=== PATIENT | female | born 1980 | race Two or more races ===

== ENCOUNTER → 2024-06-16 | Day surgery (SDC) | payer MEDICAID ==
[2024-06-12 15:33] LABS: Basophils # (auto) 0.1 10 ^3/uL (0-0.2); Eosinophils # (auto) 0.1 10 ^3/uL (0-0.8); Eosinophils % (auto) 1.5 % (0.0-7.0); Hematocrit 39.6 % (36.0-46.0); Hemoglobin 13.3 g/dL (12.2-16.2); Lymphocytes # (auto) 1.6 10 ^3/uL (0.4-5.4); Lymphocytes % (auto) 27.9 % (10.0-50.0); Mean Corpuscular Hemoglobin 24.9 pg (28.0-32.0); Mean Corpuscular Hgb Conc. 33.5 g/dL (32.0-36.0); Mean Corpuscular Volume 74.3 fL (80.0-100.0); Monocytes # (auto) 0.5 10 ^3/uL (0-1.3); Neutrophils # (auto) 3.5 10 ^3/uL (1.6-8.6); Neutrophils % (auto) 60.6 % (37.0-80.0); Nucleated Red Blood Cells % 0.6 %; Platelet Count (auto) 216 10^3/uL (140-450); Red Blood Cells 5.33 10^6/uL (4.0-5.20); Red Cell Distribution Width 15.4 % (11.8-14.3); White Blood Cell 5.7 10^3/uL (4.4-10.8)
[2024-06-12 15:54] LABS: INR 0.97 (0.9-1.15); Partial Thromboplastin Time 23.8 SEC (24.5-34.5); Prothrombin Time 10.3 sec (9.3-11.8)
[2024-06-12 15:59] LABS: Urine Bacteria FEW /hpf (None Seen); Urine Blood 2+ /uL (Negative); Urine Budding Yeast OCCASIONAL /hpf (None Seen); Urine Clarity Turbid (Clear); Urine Color Yellow (Yellow); Urine Mucus FEW (None Seen); Urine Protein, UAD Negative (Negative); Urine Specific Gravity 1.025 (1.001-1.035); Urine Squamous Epithelial Cell MANY /hpf (<5); Urine Urobilinogen Normal (Negative); Urine WBC 17 /HPF (0-5); Urine pH 5.5 (5.0-9.0)
[2024-06-12 16:25] LABS: Alanine Aminotransferase 28 U/L (7-40); Alkaline Phosphatase 56 U/L (46-116); Anion Gap 9 (5-15); BUN/Creatinine Ratio 23.2 (10.0-20.0); Blood Urea Nitrogen 16 mg/dL (9-23); Calcium 10.3 mg/dL (8.7-10.4); Carbon Dioxide 26 mmol/L (20-31); Chloride 107 mmol/L (98-107); Glucose 77 mg/dL (74-106); Sodium 142 mmol/L (136-145)
[2024-06-12 16:26] LABS: Potassium 3.3 mmol/L (3.5-5.1); Total Protein 6.8 g/dL (5.7-8.2)
[2024-06-12 16:27] LABS: Albumin 4.4 g/dL (3.2-4.8); Aspartate Aminotransferase 22 U/L (13-40)
[2024-06-12 16:28] LABS: Bilirubin, Total 0.4 mg/dL (0.2-1.0)
[~2024-06-16] VITALS: Ht 170.2 cm; Wt 66.2 kg
[~2024-06-16] MED LIST: DOXY-286 PO; DexAMETHasone SOD PHOS 10MG/1ML VIAL INJ ONE; GLYCOPYRROLATE 0.2 MG/ML 1ML VIAL ONE; HYDROmorphone HCL 2 MG/ML VL/or syr IV PRN; KETOROLAC TROMETH 30 MG/ML 1ML VIAL ONE; LIDOCAINE 1% INJ PF 5ML AMP ONE; METR-344 PO; MIDAZOLAM HCL 2MG/2ML 2ml VIAL (1mg/ml) ONE; OMEP-434 PO; ONDANSETRON HCL 4 MG/2 ML VIAL ONE; PROPOFOL 10 MG/ML 20 ML IV ONE; fentaNYL CITRATE 100 MCG/2 ML VL ONE
--- NOTE | 2024-06-16 13:21 | DVHHP2 ---
History Allergies: Coded Allergies: NO KNOWN ALLERGIES (Unverified , 06/12/24) Chief Complaint: Left ankle sprain Present Illness(Onset/Duration James Pfeiffer [id number] 1980 04/24/2024 02:30 PM Page: 02/12 Patient is a 44 year old female that presents to clinic for evaluation of right and left foot pain. Pain is described as sharp, and is 7/10, and located at the right & left big toe joint. The problem is aggravated by activity, cool climate and is alleviated by rest. Has no pain with upward and downward movement of foot. Treatment has not been attempted to this point. Patient denies any trauma to the area. Patient denies any other pedal complaints at this time. Physical Exam Other MUSCULOSKELETAL EXAM: - Moderate bunion present to the right&left foot. - The bunion is tracking?. - Tenderness is present over the eminence and within the 1st MTPJ. - The first ray is? hypermobile on exam. - Muscle strength is 5/5 and active motion is pain-free and symmetrical bilaterally with plantarflexion, dorsiflexion, abduction, adduction, inversion, and eversion against resistance. - No pain or crepitus with passive range of motion bilaterally to all major pedal joints.? X-rays reviewed with the patient OBJECTIVE: The patient is a pleasant female sitting in no acute distress. Respirations regular and non-labored. He has no focal neurologic deficits. DERMATOLOGIC EXAM: - Skin is warm, smooth, and supple bilaterally. - No erythema noted to the foot and ankle bilaterally. - No hyperkeratotic lesions noted bilaterally. - No other discolorations, lesions, or open wounds noted bilaterally. VASCULAR EXAM: - DP and PT pulses are palpable bilaterally. - [employer] LPN is brisk to all digits. - No edema noted to the leg, foot, and ankle bilaterally. NEUROLOGIC EXAM: - Normal light touch sensation to the superficial peroneal, deep peroneal, sural, saphenous, and tibial nerve branches. - Protective sensation is intact as tested with a 5.07 10g [place]av Monofilament bilaterally. - No paresthesia noted on percussion of Tibial Nerve in the Tarsal Tunnel bilaterally. Plan PREOP PLAN The patient is scheduled for bilateral foot exostectomy on 06/16/24. We reviewed the surgical procedure, the expected recovery and the patient's needs post- operatively. The patient was also given written and verbal pre-operative and post-operative instructions. The benefits of surgery were reviewed which include reduction in pain and increased function. The risks of surgery were reviewed with the patient and include but are not limited to infection, pain, bleeding, numbness, scarring, delayed wound healing, loss of soft tissue or bone, non- union, malunion or delayed-union of bone, joint stiffness, painful hardware, failure of hardware, and potential need for additional surgery. Loss of limb or life. Risks associated with anesthesia. All of the patient's questions were answered to their satisfaction. Informed consent was obtained, signed, and is in the patient's chart. No guarantees were given or implied. I anticipate maintaining the patient non-weight bearing? in a fracture boot? post- operatively. A prescription for post-operative pain medication will be dispensed for Oxycodone 5mg? and Zofran 4mg. Please note that the database on DOP was accessed and the patient was assessed for prior prescriptions. In prescribing opioid therapy for the management of pain, I have reviewed with the patient?: 1) the reasons why this medication is necessary, as well as realistic goals for pain and function; 2) alternative treatment options available, including ?; 3) the risks of addiction and overdose associated with opioid medications; 4) the dangers of taking opioids with alcohol, benzodiazepines, and other [employer] depressants; and 5) other risks associated with the use of this medication. I discussed the procedure today with the patient and answered their questions to their satisfaction. We discussed the post op period as well as the time of non weight bearing anticipated. We talked about the risks, benefits and alternatives. I discussed the risks of the procedure which include but is not limited to infection, damage to neurovascular structures, complex regional pain syndrome, DVT, pulmonary embolism as well as anesthesia related risks. Despite these the patient would like to proceed. Informed consent was obtained and we offered a copy to the patient. Absolutely no guarantees were given or implied. I explained that I cannot guarantee this will alleviate all pain and symptoms and their expectations appear realistic. I assessed their DVT risk and I will go ahead and prophylaxis with 81mg Aspirin twice per day. I will see the patient 14 days post op. INDICATIONS FOR PROCEDURE INDICATIONS FOR PROCEDURE: The patient with diagnosis as outlined above. The patient has attempted and failed conservative treatment as outlined in preoperative clinic notes. Possible postoperative complications were reviewed with the patient in the pre-op holding area. The patient desires to proceed with surgery and signed the consent form. No guarantees were given or implied, but it is expected that the patient will have a favorable outcome. It is with this understanding that we proceed. FOLLOW-UP: Patient will follow up with me as needed SANA MILLIGAN DPM June 16, 2024 13:21
[2024-06-16] MEDS: ceFAZolin 2 GM/D5W50ml 50 ML IV ONE (13:40)
[2024-06-16] MEDS: BUPIVACAINE 0.5% MPF INJ 30ML SDV IJ ONE (13:52)
--- NOTE | 2024-06-16 14:11 | DVHOP2 ---
Operative Report - 2 Report Details Date: 06/16/24 Preop Diagnosis: 1. Bilateral bunion 2. Bilateral hallux limitus 3. Bilateral foot pain Postop Diagnosis: Same as preop Surgeon: Sana Milligan MD Anesthesiologist: See anesthesia Anesthesia: General Consent: The patient was informed of the risks and benefits of the procedure. These include but are not limited to complications of anesthesia, postoperative infection, incomplete relief of symptoms, recurrence of symptoms, damage to blood vessels, nerves and tendons, deep venous thrombosis, pulmonary embolism and possible need for repeat surgery in the future. Complications: None Estimated Blood Loss: Minimal Fluids: See anesthesia Findings: Consistent with diagnosis Indications for Surgery: Bilateral foot pain Name of Procedure Performed 1. Right foot cheilectomy (95871) 2. Left foot cheilectomy (32524) Procedure Details Procedure Details: PRE-PROCEDURE INFORMATION: In the pre-op holding area, the extremity to be operated on was clearly marked and the patient verified correct laterality of the marking. The patient was transferred to the OR table and placed in a supine position. A timeout was performed in which identification of the correct patient, procedure, location, and materials was done. The bilateral foot and leg were prepped and draped in normal sterile fashion. DESCRIPTION OF PROCEDURE: Attention was directed to the left 1st metatarsophalangeal joint where a stab incision was made at the head of the 1st metatarsal. Care was taken throughout dissection to avoid damage to neurovasc ular tendinous structures. The incision was deepened to the level of the capsule. Using an MIS bur, the bur was then inserted, and the dorsal spurring of the 1st metatarsal was removed. It was noted after performing the MIS cheilectomy that there significant increased range of motion of the hallux. Attention was directed to the left 1st metatarsophalangeal joint where a stab in cision was made at the head of the 1st metatarsal. Care was taken throughout dissection to avoid damage to neurovascular tendinous structures. The incision was deepened to the level of the capsule. Using an MIS bur, the bur was then inserted, and the dorsal spurring of the 1st metatarsal was removed. It was noted after performing the MIS cheilectomy that there significant increased range of motion of the hallux. All surgical wounds were irrigated copiously with saline and closed in layers with the aforementioned suture material. A dry sterile dressing was placed on the surgical extremity. The patient was placed in a postop shoe POSTOPERATIVE INFORMATION: The patient tolerated the above noted procedure and anesthesia well and was transferred to the PACU with vital signs stable, and vascular status intact with capillary refill intact to all digits. Postoperative instructions reviewed in detail with the patient with written instructions provided. Patient will return to clinic in approximately 10-14 days for first postoperative visit. Patient has the number of the clinic and was instructed to call prior to that time should any problems, questions, or concerns arise. Condition Good Disposition Still a Patient SANA MILLIGAN DPM June 16, 2024 14:11
[2024-06-16 14:51] VITALS: BP 99/62; PULSE 79; RESP 12; RESP 9; TEMP 97.3; O2SAT 97
== END | disposition home or self-care (01) ==
LOC: SUR 12:03
PROVIDERS: ATTEND Podiatrist
DX: M20.5X2 Other deformities of toe(s) (acquired), left foot (principal); M20.5X1 Other deformities of toe(s) (acquired), right foot; M21.611 Bunion of right foot; M21.612 Bunion of left foot
CPT/HCPCS: 28289; 36415; 80053; 81001; 84702; 85025; 85610; 85730; J0690; J1100; J1885; J2250; J2405; J2704; J3010; J3490